=== PATIENT | female | born 1945 | race Caucasian/White ===

== ENCOUNTER 2024-05-18 17:31 | Emergency (ER) | payer MEDICARE, OTHER, SELFPAY ==
[2024-05-18 17:35] VITALS: BP 111/57
--- NOTE | 2024-05-18 19:29 | ED.GENMED ---
History of Present Illness
General
Chief Complaint: Back Pain
Source: patient
Exam Limitations: none
Time Seen by Provider: 05/18/24 19:04
Nursing documentation reviewed up to this point in time: agreed with
History of Present Illness
History of Present Illness:
78-year-old female presents emergency department due to low back pain. 2 days ago she had an episode of diarrhea. She had a large bowel movement. She has not had a bowel movement for days and then it came on suddenly. She did not have any
incontinence yesterday or today. She denies any groin numbness. She has chronic low back pain. No urinary incontinence.
Past History
Past History
ED Past Medical History: CAD
ED Past Surgical History: Cardiac (CABG), Cholecystectomy, Gynecological (Hysterectomy), Orthopedic (Shoulder replacement x 2) and Tonsilectomy
Social History
Tobacco: Non-smoker
Alcohol: None
Drug: None
Review of Systems
Review of Systems
Allergies reviewed?: Yes
All Other Systems: Not applicable
Constitutional: Reports no symptoms
EENT: Reports no symptoms
Respiratory: Reports no symptoms; Denies trouble breathing
Cardiac: Reports no symptoms; Denies chest pain
ABD/GI: Reports other (See HPI); Denies abdominal pain or black stools
: Reports no symptoms
Musculoskeletal: Reports edema
Skin: Reports no symptoms
Neurological: Reports no symptoms
Endocrine: Reports no symptoms
Hematologic/Lymphatic: Reports no symptoms
Psychiatric: Reports no symptoms
Phy Exam
Physical Exam
Physical Exam:
Physical Exam
General: no apparent distress, not acutely ill
Neck: supple. no meningeal signs. normal posterior pharynx
Heart: s1/s2 regular rate and rhythm, no murmur. equal radial
pulses.
HEENT: Pupils equal round reactive to light, EOMI
Lungs: no acute respiratory distress. clear bilaterally, midline sternotomy scar
Abdomen: normal bowel sounds. not tender. no CVAT
rectal exam: normal rectal tone, no numbness, guaiac negative brown stool
Neuro: alert and oriented. no focal neurological deficits cranial nerves II through XII intact
Skin: no rash
Psychiatric: well kept. interactive and cooperative
Extremities: no edema. no calf tenderness. negative homans. good distal pulses in bilateral dorsalis pedis
Course
Vital Signs
Initial and Last Documented VS:
Initial Vital Signs
Temp Pulse Resp BP Pulse Ox
97.7 F 74 16 111/57 95
05/18/24 17:35 05/18/24 17:35 05/18/24 17:35 05/18/24 17:35 05/18/24 17:35
Last Documented Vital Signs
Temp Pulse Resp BP Pulse Ox
97.7 F 74 16 111/57 95
05/18/24 17:35 05/18/24 17:35 05/18/24 17:35 05/18/24 17:35 05/18/24 17:35
MDM/Problems Addressed
Differential Diagnosis Includes:
Cauda equina, colitis, GI bleed
MDM/Problems Addressed:
78-year-old female with chronic low back pain. Do not suspect cauda equina. Patient has mild bilateral lower leg edema. Patient states this is chronic. Discussed ultrasound, patient declines ultrasound or labs at this time. Follow-up with
primary care.
Chronic conditions affecting care: CAD
*Pulse Oximetry
Patient hypoxic: no
*Critical Care Note
Total Time (30-74mins, 75-104mins- exclusive of procedures): Not Applicable
Data Reviewed
Further Testing Considered But Not Given:
MRI and x-ray not indicated
Patient Management
Social determinants of health affecting care: Living situation and Strong social support
Escalation/DeEscalation of care consider admission/obs:
Admit not indicated
ED Attending Note
-
Portions of this chart may have been created with voice recognition software.� Occasional wrong word or��sound alike� substitutions may have occurred due to the inherent limitations of voice recognition software.
Discharge Plan
Departure
Patient Disposition: Home (Routine Discharge)
Date of Disposition: 05/18/24
Time of Disposition: 19:35
Patient with high blood pressure during this ER visit?: No
Condition: Good
Discharge Problem:
Low back pain
Instructions: Low Back Pain (DC)
Activity Restrictions/Additional Instructions:
Follow-up with primary care. Return for any concerns.
Interventions
Interventions:
*Risk Screen - Suicide Last Done: 05/18/24 17:44
*General Assessment Last Done: 05/18/24 18:39
*Neglect/Abuse Screening Last Done: 05/18/24 17:44
*ED COVID-19 Vaccine History Last Done: 05/18/24 17:41
Discharge Date and Time
Print Language: TRISTANIAN
[2024-05-18 20:00] VITALS: BP 116/57
== END 2024-05-18 20:30 | disposition home or self-care (01) ==
LOC: EMR 17:31
PROVIDERS: EMERGENCY PHYSICIAN Emergency Medicine
DX: M54.50 Low back pain, unspecified (principal); G89.29 Other chronic pain; R60.0 Localized edema; I25.10 Atherosclerotic heart disease of native coronary artery without angina pectoris; Z95.1 Presence of aortocoronary bypass graft; Z90.49 Acquired absence of other specified parts of digestive tract; Z90.710 Acquired absence of both cervix and uterus
CPT/HCPCS: 99282